=== PATIENT | male | born 1950 | race Caucasian/White ===

== ENCOUNTER 2016-08-08 06:56 | Day surgery (SDC) | payer MEDICARE, OTHER ==
--- NOTE | ~2016-08-08 | OP ---
Record Of Operation [facility] [address] [place]. [address] NAME: GAUTAM SAMANO : 48 [place] [facility] [place] [id number] AGE: 66 ADM/REG DATE : 08/08/16 MR#: [id number] REPORT SERV DATE: 08/08/16 DICTATED BY: GATO ODOM III DATE: 08/08/16 REPORT STATUS : Draft TRANSCRIBED BY: MODL DATE: 08/08/16 DATE OF PROCEDURE: 08/08/2016 PREOPERATIVE DIAGNOSES: 1. Right ureteral stent. 2. Indwelling Mccann catheter. POSTOPERATIVE DIAGNOSES: 1. Right ureteral stent. 2. Indwelling Mccann catheter. PROCEDURE: Cystoscopy, right ureteral stent exchange and Mccann catheter placement. SURGEON: Gato Odom M.D. ANESTHESIA: General. SPECIMENS: None. DRAINS: A 7 x 24 cm double-J ureteral stent and an 18-Filipino Mccann catheter. INDICATION: Mr. Samano is a 66-year-old white male with advanced MS. He has been found to have a ureteral stricture in the past which is managed with indwelling ureteral stent. He also has urinary retention and which is managed with indwelling Mccann catheter, it is time to change the stent and consent is obtained. DESCRIPTION OF PROCEDURE: After consent was obtained, the patient was identified, he was taken to the OR and put to sleep. He was positioned in the low lithotomy position and prepped and draped as well as possible. His body habitus is somewhat constricted. A 22- Filipino cystoscope was made ready and advanced along the course of urethra into the bladder. The right ureteral stent was visualized, grasped with an alligator forceps and pulled out through urethral meatus. The distal coil was cut off and a glidewire was passed up through the stent and into the renal collecting system, it is viewed on fluoroscopy, that stent was removed leaving the wire in place. The guidewire was then back loaded through the cystoscope, which was then advanced into the bladder. A 7 x 24 cm double-J ureteral stent was made ready and advanced along over the wire when in position, the wire was removed. The stent was noted to coil in the renal collecting system as well as the bladder. The bladder was left full. The scope removed. An 18-Filipino Mccann catheter was then inserted and balloon inflated to 10 mL. The patient was awakened and taken to recovery in stable condition. PH/MODL Gato Odom Record Of Operation [facility] [address] [facility]. [address] NAME: GAUTAM SAMANO : 48 [place]US : [place] [facility] [place] [id number] AGE: 66 ADM/REG DATE : 08/08/16 MR#: [id number] REPORT SERV DATE: 08/08/16 DICTATED BY: GATO ODOM III DATE: 08/08/16 REPORT STATUS : Draft TRANSCRIBED BY: MODL DATE: 08/08/16 Jason PLATA / [id number] CC: Gato Odom III, M.D.
[~2016-08-08 06:56] MED LIST: ACCUNE1 INH; ALAVERT10 MG PO; ALBUTEROL5 INH; ATV.5 PO; AUG875 PO; AZO CRANBERRY PO; AZO-CRANBERY450 MG OR; AZO-CRANBERY450 MG PO; BEN25 PO; BISR; BISR PR; CARDURA1 MG PO; CLARIT10 PO; CLOBETASOL0.051 TOP; COMBIVENT INH; COMBIVENT RESPIM4 GM INH; COMBIVENT RESPIM4 GM PO; CRANBERRY400 MG OR; D.O.S.100 MG PO; DANTRIUM25 MG OR; DANTROLENE PO; DEPAKOT250 PO; DIPHENHIST25 MG PO; DSS PO; FLONASE NAS; FOLIC ACID PO; FOLIC ACID800 MCG PO; FOLIC PO; GGDM5ML PO; GUAIFENESIN DM PO; HYDROCORTISONE30 G3 T; HYDROCORTISONE30 G4 TOP; KLONO1 PO; KLONO5 PO; LEVAQUIN5T PO; LEVOTHYROXIN100 MCG PO; LEVOTHYROXIN25 MCG PO; LEXAPRO10 PO; MACROBID PO; MIRALAXPKT PO; MOMUD PO; MULTIVIT/MIN PO; NEUR100 PO; NEUR300 PO; NORCO1 TA1 PO; PAXIL CR25 MG PO; PCET PO; PHENERGAN 2525 MG/M1 IM; PROLOP100 PO; PROMOD PO; REM15 PO; SENTAB PO; SODCLTAB; SODCLTAB PO; SODIUM PHOSPHATE PR; SYN1 PO; T PO; TEG100B PO; TEG200 PO; TEGRETOL100 MG PO; THERAPEUTIC PO; TYSABRI IV; ULTRAM50 PO; V5 PO; VITC500 PO; WELLSR150 PO; ZANTAC150 MG PO; ZOFRAN4 PO; ZOL50 PO; [UNRECOGNIZED DRUG - OTHER] PO; [UNRECOGNIZED DRUG - OTHER] PR; [UNRECOGNIZED DRUG - OTHER] TOP
[2016-08-08 07:47] LABS: HEMATOCRIT 39.7 % (40.0-51.0); HEMOGLOBIN 13.7 g/dL (13.6-17.8)
== END 2016-08-08 13:06 | disposition left against medical advice (07) ==
LOC: SDC 06:56
PROVIDERS: Urology
PROC: 0T7D8DZ Dilation of Urethra with Intraluminal Device, Via Natural or Artificial Opening Endoscopic (ICD-10-PCS; 2016-08-08)
PROC: 0T768DZ Dilation of Right Ureter with Intraluminal Device, Via Natural or Artificial Opening Endoscopic (ICD-10-PCS; principal; 2016-08-08 08:30)
DX: Z46.6 Encounter for fitting and adjustment of urinary device (principal); N13.1 Hydronephrosis with ureteral stricture, not elsewhere classified; N31.9 Neuromuscular dysfunction of bladder, unspecified; E03.9 Hypothyroidism, unspecified; G35 Multiple sclerosis; G50.0 Trigeminal neuralgia; H02.402 Unspecified ptosis of left eyelid; F41.9 Anxiety disorder, unspecified; F32.9 Major depressive disorder, single episode, unspecified; R33.9 Retention of urine, unspecified; R25.2 Cramp and spasm; Z79.52 Long term (current) use of systemic steroids; Z79.2 Long term (current) use of antibiotics; Z79.899 Other long term (current) drug therapy; Z87.01 Personal history of pneumonia (recurrent); Z87.81 Personal history of (healed) traumatic fracture; Z98.890 Other specified postprocedural states; Z87.442 Personal history of urinary calculi; Z87.440 Personal history of urinary (tract) infections
CPT/HCPCS: 85014; 85018; 93005; C2617; J2250; J2370; J2405; J3010